=== PATIENT | female | born 1940 | race Caucasian/White ===

== ENCOUNTER 2023-08-06 10:03 | Emergency (ER) | payer MEDICARE, BC ==
[~2023-08-06] VITALS: Ht 149.8 cm; Wt 58.5 kg
== END 2023-08-06 12:39 | disposition home or self-care (01) ==
LOC: ED 10:03
DX: S69.91XA Unspecified injury of right wrist, hand and finger(s), initial encounter (principal); J44.9 Chronic obstructive pulmonary disease, unspecified; X50.1XXA Overexertion from prolonged static or awkward postures, initial encounter; Y93.89 Activity, other specified; Y92.89 Other specified places as the place of occurrence of the external cause; Y99.8 Other external cause status

== ENCOUNTER 2023-08-27 15:14 | Emergency (ER) | payer MEDICARE, BC ==
[~2023-08-27] VITALS: Ht 149.8 cm; Wt 56.2 kg
[2023-08-27 16:03] LABS: BASO # 0.1 10*3/uL (0.0-0.1); BASO % 0.5 % (0.0-1.0); EOS # 0.1 10*3/uL (0.0-0.4); EOS % 0.5 % (1.0-4.0); LYMPH # 1.1 10*3/uL (1.3-4.4); LYMPH % 8.5 % (27.0-41.0); MEAN CELL VOLUME 94.3 fl (81.0-99.0); MEAN CORPUSCULAR HGB 30.4 pg (27.0-31.0); MEAN CORPUSCULAR HGB CONC 32.2 g/dl (33.0-37.0); MEAN PLATELET VOLUME 9.6 fl (9.6-12.3); MONO # 0.8 10*3/uL (0.1-1.0); MONO % 6.6 % (3.0-9.0); NEUT # 10.7 10*3/uL (2.3-7.9); NEUT % 83.7 % (47.0-73.0); PLATELET COUNT AUTOMATED 220 10*3/uL (130-400); RED BLOOD COUNT 4.77 10*6/uL (4.10-5.10); WHITE BLOOD COUNT 12.8 10*3/uL (4.8-10.8)
[2023-08-27 16:25] LABS: ALKALINE PHOSPHATASE 90 U/L (46-116); BUN 16 mg/dl (9-23); CHLORIDE 103 mmol/L (98-107); TOTAL PROTEIN 6.2 gm/dL (6.0-8.0)
[2023-08-27 16:28] LABS: SGPT/ALT < 7 U/L (5-49)
[2023-08-27] MEDS ORDERED: LEVOFLOXACIN500 MG PO ×2 (18:27)
[2023-08-28] MEDS ORDERED: TRELEGY ELLIPT1 EACH INH (16:26)
[2023-08-28] MEDS ORDERED: METOPROLOL SUCC50 M1 PO (16:27)
[2023-08-28] MEDS ORDERED: ASPIRIN81 M1 PO (16:27)
[2023-08-28] MEDS ORDERED: PROVENTIL HFA6.7 GM INH (16:28)
[2023-08-28] MEDS ORDERED: DOCUSATE SOD100 MG PO (16:29)
[2023-08-28] MEDS ORDERED: LIPITOR20 MG PO (16:29)
[2023-08-28] MEDS ORDERED: LOSARTAN POTAS100 MG PO (16:30)
[2023-08-28] MEDS ORDERED: LEVOTHYROXINE88 MCG PO (16:30)
[2023-08-28] MEDS ORDERED: ANTIVERT25 M2 PO (16:31)
[2023-08-28] MEDS ORDERED: OMEPRAZOLE40 MG PO (16:31)
[2023-08-28] MEDS ORDERED: MIRALAX POWDER17 G1 PO (16:32)
[2023-08-28] MEDS ORDERED: ALBUTEROL S5 MG/1 ML INH (16:32)
[2023-08-28] MEDS ORDERED: TYLENOL325 M2 PO (16:33)
[2023-08-28] MEDS ORDERED: CONSTULOSE10 GM/151 PO (16:33)
[2023-08-28] MEDS ORDERED: SINGULAIR10 M1 PO (16:35)
[2023-08-28] MEDS ORDERED: OMEGA 3 1,0001 EACH PO (16:35)
[2023-08-28] MEDS ORDERED: POTASSIUM CHLO10 ME5 PO (16:36)
[2023-08-28] MEDS ORDERED: MAGNESIUM400 M1 PO (16:37)
[2023-08-28] MEDS ORDERED: AMLODIPINE BESYL5 MG PO (16:37)
[2023-08-28] MEDS ORDERED: LASIX40 MG PO (16:37)
== END 2023-08-27 19:21 | disposition home or self-care (01) ==
LOC: ED 15:14
PROVIDERS: Nurse Practitioner
DX: J18.9 Pneumonia, unspecified organism (principal); J44.9 Chronic obstructive pulmonary disease, unspecified; R60.0 Localized edema; Z87.891 Personal history of nicotine dependence

== ENCOUNTER 2023-08-28 14:46 | Inpatient (IN) | payer MEDICARE, BC ==
[~2023-08-28] VITALS: Ht 149.9 cm; Wt 56.8 kg
[~2023-08-28 14:46] MED LIST: LEVOFLOXACIN500 MG PO
[2023-08-28 15:42] VITALS: BP 165/97
[2023-08-28 15:42] LABS: BASO % 0.2 % (0.0-1.0); HEMATOCRIT 44.6 % (37.0-47.0); LYMPH # 0.8 10*3/uL (1.3-4.4); LYMPH % 4.6 % (27.0-41.0); MEAN CELL VOLUME 93.9 fl (81.0-99.0); MEAN CORPUSCULAR HGB 30.7 pg (27.0-31.0); MEAN CORPUSCULAR HGB CONC 32.7 g/dl (33.0-37.0); MEAN PLATELET VOLUME 10.3 fl (9.6-12.3); NEUT # 15.4 10*3/uL (2.3-7.9); NEUT % 88.6 % (47.0-73.0); PLATELET COUNT AUTOMATED 198 10*3/uL (130-400); RED BLOOD COUNT 4.75 10*6/uL (4.10-5.10); RED CELL DISTRI WIDTH 12.4 % (0-14.5); WHITE BLOOD COUNT 17.3 10*3/uL (4.8-10.8)
[2023-08-28 15:47] LABS: ALKALINE PHOSPHATASE 91 U/L (46-116); BUN 22 mg/dl (9-23); CHLORIDE 103 mmol/L (98-107); SGPT/ALT 8 U/L (5-49); TOTAL PROTEIN 6.7 gm/dL (6.0-8.0)
[2023-08-28] MEDS ORDERED: TRELEGY ELLIPT1 EACH INH (16:26)
[2023-08-28] MEDS ORDERED: METOPROLOL SUCC50 M1 PO (16:27)
[2023-08-28] MEDS ORDERED: ASPIRIN81 M1 PO (16:27)
[2023-08-28] MEDS ORDERED: PROVENTIL HFA6.7 GM INH (16:28)
[2023-08-28] MEDS ORDERED: LIPITOR20 MG PO (16:29)
[2023-08-28] MEDS ORDERED: DOCUSATE SOD100 MG PO (16:29)
[2023-08-28] MEDS ORDERED: LOSARTAN POTAS100 MG PO (16:30)
[2023-08-28] MEDS ORDERED: LEVOTHYROXINE88 MCG PO (16:30)
[2023-08-28] MEDS ORDERED: OMEPRAZOLE40 MG PO (16:31)
[2023-08-28] MEDS ORDERED: ANTIVERT25 M2 PO (16:31)
[2023-08-28] MEDS ORDERED: ALBUTEROL S5 MG/1 ML INH (16:32)
[2023-08-28] MEDS ORDERED: MIRALAX POWDER17 G1 PO (16:32)
[2023-08-28] MEDS ORDERED: CONSTULOSE10 GM/151 PO (16:33)
[2023-08-28] MEDS ORDERED: TYLENOL325 M2 PO (16:33)
[2023-08-28] MEDS ORDERED: SINGULAIR10 M1 PO (16:35)
[2023-08-28] MEDS ORDERED: OMEGA 3 1,0001 EACH PO (16:35)
[2023-08-28] MEDS ORDERED: POTASSIUM CHLO10 ME5 PO (16:36)
[2023-08-28] MEDS ORDERED: LASIX40 MG PO (16:37)
[2023-08-28] MEDS ORDERED: AMLODIPINE BESYL5 MG PO (16:37)
[2023-08-28] MEDS ORDERED: MAGNESIUM400 M1 PO (16:37)
[2023-08-28 19:50] VITALS: BP 154/72
[2023-08-28 21:50] VITALS: BP 148/80
[2023-08-28 22:00] VITALS: BP 148/80
[2023-08-29] VITALS: BP 140/78
[2023-08-29 06:09] LABS: HEMATOCRIT 36.4 % (37.0-47.0); MEAN CELL VOLUME 94.3 fl (81.0-99.0); MEAN CORPUSCULAR HGB 30.3 pg (27.0-31.0); MEAN CORPUSCULAR HGB CONC 32.1 g/dl (33.0-37.0); PLATELET COUNT AUTOMATED 160 10*3/uL (130-400); RED BLOOD COUNT 3.86 10*6/uL (4.10-5.10); RED CELL DISTRI WIDTH 12.3 % (0-14.5); WHITE BLOOD COUNT 11.3 10*3/uL (4.8-10.8)
[2023-08-29 06:29] LABS: MANUAL DIFF REFLEX YES
[2023-08-29 06:34] LABS: ALKALINE PHOSPHATASE 67 U/L (46-116); BUN 18 mg/dl (9-23); CHLORIDE 105 mmol/L (98-107); POTASSIUM 4.4 mmol/L (3.4-5.1); TOTAL PROTEIN 5.2 gm/dL (6.0-8.0)
[2023-08-29 06:37] LABS: SGPT/ALT < 7 U/L (5-49)
[2023-08-29 07:18] LABS: PLATELET SUFFICIENCY NORMAL (NORMAL); TOTAL CELLS COUNTED 100 #CELLS
[2023-08-29 08:00] VITALS: BP 131/65
[2023-08-29 12:00] VITALS: BP 129/75
[2023-08-29 16:00] VITALS: BP 144/77
[2023-08-29 20:00] VITALS: BP 123/63
[2023-08-30] VITALS: BP 128/76
[2023-08-30 06:07] LABS: HEMATOCRIT 39.7 % (37.0-47.0); MEAN CORPUSCULAR HGB 30.4 pg (27.0-31.0); MEAN PLATELET VOLUME 10.1 fl (9.6-12.3); PLATELET COUNT AUTOMATED 194 10*3/uL (130-400); RED BLOOD COUNT 4.18 10*6/uL (4.10-5.10); RED CELL DISTRI WIDTH 12.5 % (0-14.5); WHITE BLOOD COUNT 9.3 10*3/uL (4.8-10.8)
[2023-08-30 06:20] LABS: MANUAL DIFF REFLEX YES
[2023-08-30 06:39] LABS: BUN 20 mg/dl (9-23); CHLORIDE 104 mmol/L (98-107); POTASSIUM 4.2 mmol/L (3.4-5.1)
[2023-08-30 07:12] LABS: PLATELET SUFFICIENCY NORMAL (NORMAL); TOTAL CELLS COUNTED 100 #CELLS
[2023-08-30 08:00] VITALS: BP 139/80
[2023-08-30 12:18] VITALS: BP 140/78
[2023-08-30] MEDS ORDERED: ZITHROMAX250 MG PO (12:28)
[2023-08-30] MEDS ORDERED: PREDNISONE10 MG PO (12:28)
[2023-08-30] MEDS ORDERED: ALBUTEROL S5 MG/1 ML NEB (12:28)
[2023-08-30] MEDS ORDERED: NEBULIZER NEB (12:29)
[2023-08-31] MEDS ORDERED: VENTOLIN 02.5 MG/3 M INH (13:45)
== END 2023-08-30 16:00 | disposition home or self-care (01) | DRG 871 ==
LOC: ED 14:46 → EDHOLD 15:02 → 5E 15:02
PROVIDERS: Emergency Medicine; Family Medicine; Student in an Organized Health Care Education/Training Program; ADMIT Internal Medicine; ATTEND Internal Medicine
DX: A41.9 Sepsis, unspecified organism (principal); E43 Unspecified severe protein-calorie malnutrition; J15.69 Pneumonia due to other Gram-negative bacteria; J96.01 Acute respiratory failure with hypoxia; N17.0 Acute kidney failure with tubular necrosis; J44.0 Chronic obstructive pulmonary disease with (acute) lower respiratory infection; J44.1 Chronic obstructive pulmonary disease with (acute) exacerbation; E87.20 Acidosis, unspecified; R65.20 Severe sepsis without septic shock; I10 Essential (primary) hypertension; E03.9 Hypothyroidism, unspecified; Z87.891 Personal history of nicotine dependence; Z68.25 Body mass index [BMI] 25.0-25.9, adult

== ENCOUNTER 2023-09-02 13:22 | Emergency (ER) | payer MEDICARE, BC ==
[~2023-09-02] VITALS: Ht 149.8 cm; Wt 56.2 kg
[~2023-09-02 13:22] MED LIST changes: +ALBUTEROL S5 MG/1 ML INH; +ALBUTEROL S5 MG/1 ML NEB; +AMLODIPINE BESYL5 MG PO; +ANTIVERT25 M2 PO; +ASPIRIN81 M1 PO; +CONSTULOSE10 GM/151 PO; +DOCUSATE SOD100 MG PO; +LASIX40 MG PO; +LEVOTHYROXINE88 MCG PO; +LIPITOR20 MG PO; +LOSARTAN POTAS100 MG PO; +MAGNESIUM400 M1 PO; +METOPROLOL SUCC50 M1 PO; +MIRALAX POWDER17 G1 PO; +NEBULIZER NEB; +OMEGA 3 1,0001 EACH PO; +OMEPRAZOLE40 MG PO; +POTASSIUM CHLO10 ME5 PO; +PREDNISONE10 MG PO; +PROVENTIL HFA6.7 GM INH; +SINGULAIR10 M1 PO; +TRELEGY ELLIPT1 EACH INH; +TYLENOL325 M2 PO; +VENTOLIN 02.5 MG/3 M INH; +ZITHROMAX250 MG PO
[2023-09-02 15:01] LABS: HEMATOCRIT 42.5 % (37.0-47.0); MEAN CELL VOLUME 92.2 fl (81.0-99.0); MEAN CORPUSCULAR HGB 30.2 pg (27.0-31.0); MEAN CORPUSCULAR HGB CONC 32.7 g/dl (33.0-37.0); MEAN PLATELET VOLUME 9.5 fl (9.6-12.3); PLATELET COUNT AUTOMATED 233 10*3/uL (130-400); RED BLOOD COUNT 4.61 10*6/uL (4.10-5.10); WHITE BLOOD COUNT 9.5 10*3/uL (4.8-10.8)
[2023-09-02 15:07] LABS: MANUAL DIFF REFLEX YES
[2023-09-02 15:20] LABS: BUN 18 mg/dl (9-23); CHLORIDE 98 mmol/L (98-107); POTASSIUM 4.1 mmol/L (3.4-5.1)
[2023-09-02 15:26] LABS: PLATELET SUFFICIENCY NORMAL (NORMAL); TOTAL CELLS COUNTED 100 #CELLS
[2023-09-02 15:27] LABS: BURR CELLS FEW
[2023-09-02 15:56] LABS: BILIRUBIN Negative (Negative); BLOOD Negative (Negative); CLARITY Clear (Clear); COLOR Yellow (Yellow); GLUCOSE Negative (Negative); KETONE Negative (Negative); LEUKO ESTERASE Negative (Negative); NITRITE Negative (Negative)
[2023-09-02 16:16] LABS: EPITHELIAL CELLS 0-2; WAXY CAST 0-2
== END 2023-09-02 17:10 | disposition home or self-care (01) ==
LOC: ED 13:22
PROVIDERS: Internal Medicine
DX: R35.0 Frequency of micturition (principal); J44.9 Chronic obstructive pulmonary disease, unspecified; Z98.890 Other specified postprocedural states; Z87.891 Personal history of nicotine dependence

== ENCOUNTER 2023-09-23 07:32 | Emergency (ER) | payer MEDICARE, BC ==
[~2023-09-23] VITALS: Ht 121.9 cm; Wt 54.4 kg
[2023-09-23] MEDS ORDERED: Ondansetron Hydrochloride 4 MG/2 ML VIAL IV ONE (08:00)
[2023-09-23] MEDS ORDERED: SODIUM CHLORIDE 0.9% 1,000 ML IV ONE ×2 (08:00→09:15)
[2023-09-23] MEDS ORDERED: Albuterol Sulfate 2.5 MG/3 ML VIAL NEB ONE (08:05)
[2023-09-23] MEDS ORDERED: methylPREDNISolone sod succ 125 MG VIAL IV ONE (08:05)
[2023-09-23 08:49] LABS: BASO % 0.8 % (0.0-1.0); EOS # 0.1 10*3/uL (0.0-0.4); EOS % 2.5 % (1.0-4.0); HEMATOCRIT 44.7 % (37.0-47.0); LYMPH # 1.2 10*3/uL (1.3-4.4); LYMPH % 22.6 % (27.0-41.0); MEAN CELL VOLUME 95.1 fl (81.0-99.0); MEAN CORPUSCULAR HGB 29.8 pg (27.0-31.0); MEAN CORPUSCULAR HGB CONC 31.3 g/dl (33.0-37.0); MEAN PLATELET VOLUME 9.2 fl (9.6-12.3); MONO # 0.3 10*3/uL (0.1-1.0); MONO % 6.2 % (3.0-9.0); NEUT # 3.5 10*3/uL (2.3-7.9); NEUT % 67.3 % (47.0-73.0); PLATELET COUNT AUTOMATED 258 10*3/uL (130-400); RED CELL DISTRI WIDTH 12.7 % (0-14.5); WHITE BLOOD COUNT 5.2 10*3/uL (4.8-10.8)
[2023-09-23 09:05] LABS: ALKALINE PHOSPHATASE 98 U/L (46-116); BUN 13 mg/dl (9-23); CHLORIDE 103 mmol/L (98-107); POTASSIUM 3.3 mmol/L (3.4-5.1); TOTAL PROTEIN 6.1 gm/dL (6.0-8.0)
[2023-09-23 09:07] LABS: SGPT/ALT < 7 U/L (5-49)
[2023-09-23 10:30] LABS: BILIRUBIN Negative (Negative); BLOOD Negative (Negative); CLARITY Clear (Clear); COLOR Yellow (Yellow); GLUCOSE Negative (Negative); KETONE Negative (Negative); LEUKO ESTERASE Negative (Negative); NITRITE Negative (Negative); PH 6.5 (4.5-8.0); SPECIFIC GRAVITY <= 1.005 (1.001-1.030); UROBILINOGEN 0.2 E.U./dl (0.0-1.0)
[2023-09-23 10:51] LABS: BACTERIA TRACE; EPITHELIAL CELLS 0-2; HYALINE CAST 0-2; WBC 0-2 wbc/hpf (0-5)
[2023-09-23] MEDS ORDERED: POTASSIUM CHLORIDE 20 MEQ TAB PO ONE (11:00)
[2023-09-23] MEDS ORDERED: ONDANSETRON4 MG SL (11:58)
[2023-09-23] MEDS ORDERED: PREDNISONE20 M1 PO (11:58)
== END 2023-09-23 13:12 | disposition home or self-care (01) ==
LOC: ED 07:32
PROVIDERS: Emergency Medicine
DX: J44.1 Chronic obstructive pulmonary disease with (acute) exacerbation (principal); Z20.822 Contact with and (suspected) exposure to COVID-19; E86.0 Dehydration; R11.2 Nausea with vomiting, unspecified; R19.7 Diarrhea, unspecified; I10 Essential (primary) hypertension; E03.9 Hypothyroidism, unspecified; M19.90 Unspecified osteoarthritis, unspecified site; E78.5 Hyperlipidemia, unspecified; Z98.890 Other specified postprocedural states; Z87.891 Personal history of nicotine dependence

== ENCOUNTER 2023-09-25 09:10 | Emergency (ER) | payer MEDICARE, BC ==
[~2023-09-25] VITALS: Ht 149.8 cm; Wt 56.2 kg
[~2023-09-25 09:10] MED LIST changes: +ONDANSETRON4 MG SL; +PREDNISONE20 M1 PO
[2023-09-25] MEDS ORDERED: Albuterol Sulfate 2.5 MG/3 ML VIAL NEB ONE (09:45)
[2023-09-25] MEDS ORDERED: methylPREDNISolone sod succ 125 MG VIAL IV ONE (09:45)
[2023-09-25] MEDS ORDERED: MAGNESIUM SULFATE 50 ML IV ONE (09:45)
[2023-09-25 10:06] LABS: BASO % 0.5 % (0.0-1.0); EOS % 0.4 % (1.0-4.0); HEMATOCRIT 41.6 % (37.0-47.0); LYMPH % 26.5 % (27.0-41.0); MEAN CELL VOLUME 93.5 fl (81.0-99.0); MEAN CORPUSCULAR HGB 29.7 pg (27.0-31.0); MEAN CORPUSCULAR HGB CONC 31.7 g/dl (33.0-37.0); MEAN PLATELET VOLUME 8.9 fl (9.6-12.3); MONO # 0.7 10*3/uL (0.1-1.0); MONO % 9.8 % (3.0-9.0); NEUT # 4.7 10*3/uL (2.3-7.9); NEUT % 62.3 % (47.0-73.0); PLATELET COUNT AUTOMATED 274 10*3/uL (130-400); RED BLOOD COUNT 4.45 10*6/uL (4.10-5.10); WHITE BLOOD COUNT 7.5 10*3/uL (4.8-10.8)
[2023-09-25 10:29] LABS: ALKALINE PHOSPHATASE 72 U/L (46-116); BUN 19 mg/dl (9-23); CHLORIDE 103 mmol/L (98-107); POTASSIUM 3.8 mmol/L (3.4-5.1); SGPT/ALT 9 U/L (5-49)
[2023-09-25] MEDS ORDERED: LASIX20 MG PO (11:13)
[2023-09-25] MEDS ORDERED: AVPAK AZITHROM250 M1 PO (11:13)
[2023-09-30] MEDS ORDERED: LUBIPROSTONE24 MCG PO (22:28)
[2023-09-30] MEDS ORDERED: PANTOPRAZOLE SO40 MG PO (22:29)
[2023-10-03] MEDS ORDERED: PREDNISONE50 MG PO (14:27)
[2023-10-03] MEDS ORDERED: OMNICEF300 MG PO (14:27)
[2023-10-03] MEDS ORDERED: ZITHROMAX250 MG PO (14:27)
== END 2023-09-25 11:42 | disposition home or self-care (01) ==
LOC: ED 09:10
PROVIDERS: Emergency Medicine
DX: J44.1 Chronic obstructive pulmonary disease with (acute) exacerbation (principal); I10 Essential (primary) hypertension; E78.5 Hyperlipidemia, unspecified; M19.90 Unspecified osteoarthritis, unspecified site; Z98.890 Other specified postprocedural states; Z87.891 Personal history of nicotine dependence

== ENCOUNTER 2023-11-06 19:00 | Emergency (ER) | payer MEDICARE, BC ==
[~2023-11-06] VITALS: Ht 149.8 cm; Wt 55.3 kg
[~2023-11-06 19:00] MED LIST changes: +AVPAK AZITHROM250 M1 PO; +LASIX20 MG PO; +LUBIPROSTONE24 MCG PO; +OMNICEF300 MG PO; +PANTOPRAZOLE SO40 MG PO; +PREDNISONE50 MG PO
[2023-11-06 19:49] LABS: BASO # 0.1 10*3/uL (0.0-0.1); EOS # 0.1 10*3/uL (0.0-0.4); EOS % 1.4 % (1.0-4.0); HEMATOCRIT 39.5 % (37.0-47.0); LYMPH # 1.5 10*3/uL (1.3-4.4); MEAN CELL VOLUME 93.2 fl (81.0-99.0); MEAN CORPUSCULAR HGB 30.2 pg (27.0-31.0); MEAN CORPUSCULAR HGB CONC 32.4 g/dl (33.0-37.0); MEAN PLATELET VOLUME 8.8 fl (9.6-12.3); MONO # 0.7 10*3/uL (0.1-1.0); MONO % 13.2 % (3.0-9.0); NEUT # 2.7 10*3/uL (2.3-7.9); NEUT % 53.4 % (47.0-73.0); PLATELET COUNT AUTOMATED 248 10*3/uL (130-400); RED BLOOD COUNT 4.24 10*6/uL (4.10-5.10)
[2023-11-06 20:04] LABS: BUN 12 mg/dl (9-23); CHLORIDE 105 mmol/L (98-107); POTASSIUM 3.9 mmol/L (3.4-5.1)
[2023-11-06] MEDS ORDERED: cloNIDine Hydrochloride 0.1 MG TAB PO ONE (20:15)
== END 2023-11-06 20:29 | disposition home or self-care (01) ==
LOC: ED 19:00
PROVIDERS: Nurse Practitioner Family
DX: I10 Essential (primary) hypertension (principal); J44.9 Chronic obstructive pulmonary disease, unspecified; E78.5 Hyperlipidemia, unspecified; M19.90 Unspecified osteoarthritis, unspecified site; Z98.890 Other specified postprocedural states; Z87.891 Personal history of nicotine dependence

== ENCOUNTER 2024-01-13 21:38 | Emergency (ER) | payer MEDICARE, BC ==
[~2024-01-13] VITALS: Ht 170.1 cm; Wt 72.6 kg
[~2024-01-13 21:38] MED LIST changes: +ALBUTEROL HFA 90MCG INH; +AMLODIPINE BES2.5 MG PO; +BENZONATATE100 M1 PO; +CEFUROXIME AXE500 MG PO; +DOXYCYCLINE HY100 M3 PO; +HYDROCHLOROTH12.5 M3 PO; +PROTONIX40 MG PO; +TRELEGY ELLIPT1 EAC1 INH; +ZITHROMAX500 MG PO
[2024-01-13 22:21] LABS: BASO # 0.1 10*3/uL (0.0-0.1); EOS # 0.1 10*3/uL (0.0-0.4); EOS % 1.5 % (1.0-4.0); HEMATOCRIT 37.9 % (37.0-47.0); LYMPH # 1.6 10*3/uL (1.3-4.4); LYMPH % 26.8 % (27.0-41.0); MEAN CELL VOLUME 92.7 fl (81.0-99.0); MEAN CORPUSCULAR HGB 31.3 pg (27.0-31.0); MEAN CORPUSCULAR HGB CONC 33.8 g/dl (33.0-37.0); MEAN PLATELET VOLUME 9.3 fl (9.6-12.3); MONO # 0.6 10*3/uL (0.1-1.0); NEUT # 3.6 10*3/uL (2.3-7.9); NEUT % 60.4 % (47.0-73.0); PLATELET COUNT AUTOMATED 178 10*3/uL (130-400); RED BLOOD COUNT 4.09 10*6/uL (4.10-5.10); RED CELL DISTRI WIDTH 13.4 % (0-14.5); WHITE BLOOD COUNT 5.9 10*3/uL (4.8-10.8)
[2024-01-13 22:44] LABS: ALKALINE PHOSPHATASE 75 U/L (46-116); BUN 11 mg/dl (9-23); CHLORIDE 101 mmol/L (98-107); POTASSIUM 3.3 mmol/L (3.4-5.1); SGPT/ALT 12 U/L (5-49)
[2024-01-13] MEDS ORDERED: methylPREDNISolone sod succ 125 MG VIAL IV ONE (23:00)
[2024-01-13] MEDS ORDERED: Albuterol Sulf/Ipratropium 3 ML VIAL NEB ONE (23:00)
[2024-01-14] MEDS ORDERED: Albuterol Sulf/Ipratropium 3 ML VIAL NEB ONE (00:30)
[2024-01-14] MEDS ORDERED: AMOX-CLAV 875-1 EACH PO (00:40)
[2024-01-14] MEDS ORDERED: MUCUS ER1200 MG PO (00:40)
[2024-01-14] MEDS ORDERED: PREDNISONE20 M1 PO (00:40)
[2024-01-14] MEDS ORDERED: FUROSEMIDE 40 MG/4 ML VIAL IV ONE (00:55)
[2024-01-14] MEDS ORDERED: POTASSIUM CHLORIDE 20 MEQ TAB PO ONE (00:55)
== END 2024-01-14 01:10 | disposition home or self-care (01) ==
LOC: ED 21:38
PROVIDERS: Internal Medicine
DX: J44.1 Chronic obstructive pulmonary disease with (acute) exacerbation (principal); J44.9 Chronic obstructive pulmonary disease, unspecified; I10 Essential (primary) hypertension; E78.5 Hyperlipidemia, unspecified; M19.90 Unspecified osteoarthritis, unspecified site; Z98.890 Other specified postprocedural states; Z87.891 Personal history of nicotine dependence

== ENCOUNTER 2024-02-18 15:21 | Emergency (ER) | payer MEDICARE, BC ==
[~2024-02-18] VITALS: Ht 241.3 cm; Wt 55.3 kg
[~2024-02-18 15:21] MED LIST changes: +AMOX-CLAV 875-1 EACH PO; +MUCUS ER1200 MG PO
[2024-02-18 17:03] LABS: BASO % 0.8 % (0.0-1.0); EOS # 0.1 10*3/uL (0.0-0.4); EOS % 1.4 % (1.0-4.0); HEMATOCRIT 40.3 % (37.0-47.0); LYMPH # 1.5 10*3/uL (1.3-4.4); LYMPH % 30.2 % (27.0-41.0); MEAN CELL VOLUME 95.3 fl (81.0-99.0); MEAN CORPUSCULAR HGB CONC 32.5 g/dl (33.0-37.0); MEAN PLATELET VOLUME 9.1 fl (9.6-12.3); MONO # 0.5 10*3/uL (0.1-1.0); MONO % 9.9 % (3.0-9.0); NEUT # 2.8 10*3/uL (2.3-7.9); NEUT % 57.3 % (47.0-73.0); PLATELET COUNT AUTOMATED 217 10*3/uL (130-400); RED BLOOD COUNT 4.23 10*6/uL (4.10-5.10); RED CELL DISTRI WIDTH 13.8 % (0-14.5); WHITE BLOOD COUNT 4.9 10*3/uL (4.8-10.8)
[2024-02-18 17:19] LABS: POTASSIUM 4.5 mmol/L (3.4-5.1)
[2024-02-18] MEDS ORDERED: AVPAK AZITHROM250 M1 PO ×2 (18:41→19:59)
[2024-02-18] MEDS ORDERED: PREDNISONE20 M1 PO (18:41)
[2024-02-18] MEDS ORDERED: AZITHROMYCIN 250 MG TAB PO ONE (18:45)
[2024-02-18] MEDS ORDERED: methylPREDNISolone sod succ 125 MG VIAL IM ONE (18:45)
== END 2024-02-18 19:06 | disposition home or self-care (01) ==
LOC: ED 15:21
PROVIDERS: Nurse Practitioner Family
DX: J44.1 Chronic obstructive pulmonary disease with (acute) exacerbation (principal); R73.9 Hyperglycemia, unspecified; E87.1 Hypo-osmolality and hyponatremia; E03.9 Hypothyroidism, unspecified; M19.90 Unspecified osteoarthritis, unspecified site; I10 Essential (primary) hypertension; E78.5 Hyperlipidemia, unspecified; Z98.890 Other specified postprocedural states; Z87.891 Personal history of nicotine dependence

== ENCOUNTER 2024-06-17 09:30 | Emergency (ER) | payer MEDICARE, BC ==
[~2024-06-17] VITALS: Wt 54.4 kg
[~2024-06-17 09:30] MED LIST changes: +COZAAR50 M1 PO; +FEXOFENADINE H180 M1 PO; +LEVOTHYROXINE100 MC1 PO; +MUCINEX1200 M1 PO; +NORVASC10 MG PO; +SEPTDS PO; +VIBRA-TAB100 MG PO
[2024-06-17] MEDS ORDERED: MAGNESIUM SULFATE 50 ML IV ONE (09:40)
[2024-06-17] MEDS ORDERED: methylPREDNISolone sod succ 125 MG VIAL IV ONE (09:40)
[2024-06-17] MEDS ORDERED: Albuterol Sulfate 2.5 MG/3 ML VIAL NEB ONE (09:40)
[2024-06-17] MEDS ORDERED: SODIUM CHLORIDE 0.9% 500 ML IV ONE (09:45)
[2024-06-17 10:13] LABS: BASO # 0.1 10*3/uL (0.0-0.1); BASO % 1.1 % (0.0-1.0); EOS # 0.1 10*3/uL (0.0-0.4); EOS % 1.2 % (1.0-4.0); HEMATOCRIT 38.5 % (37.0-47.0); MEAN CELL VOLUME 90.6 fl (81.0-99.0); MEAN CORPUSCULAR HGB 29.4 pg (27.0-31.0); MEAN CORPUSCULAR HGB CONC 32.5 g/dl (33.0-37.0); MEAN PLATELET VOLUME 8.6 fl (9.6-12.3); MONO # 0.9 10*3/uL (0.1-1.0); MONO % 8.2 % (3.0-9.0); NEUT # 6.7 10*3/uL (2.3-7.9); NEUT % 60.8 % (47.0-73.0); PLATELET COUNT AUTOMATED 391 10*3/uL (130-400); RED BLOOD COUNT 4.25 10*6/uL (4.10-5.10); RED CELL DISTRI WIDTH 13.2 % (0-14.5); WHITE BLOOD COUNT 11.1 10*3/uL (4.8-10.8)
[2024-06-17 10:36] LABS: POTASSIUM 3.7 mmol/L (3.4-5.1)
== END 2024-06-17 11:04 | disposition home or self-care (01) ==
LOC: ED 09:30
PROVIDERS: Emergency Medicine
DX: J44.1 Chronic obstructive pulmonary disease with (acute) exacerbation (principal); R60.0 Localized edema; I10 Essential (primary) hypertension; M19.90 Unspecified osteoarthritis, unspecified site; Z98.890 Other specified postprocedural states; Z87.891 Personal history of nicotine dependence; Z79.899 Other long term (current) drug therapy; Z79.82 Long term (current) use of aspirin

== ENCOUNTER 2024-07-13 14:43 | Emergency (ER) | payer MEDICARE, BC ==
[~2024-07-13] VITALS: Ht 149.8 cm; Wt 53.1 kg
[2024-07-13] MEDS ORDERED: methylPREDNISolone sod succ 125 MG VIAL IV ONE (15:00)
[2024-07-13 15:18] LABS: BASO # 0.1 10*3/uL (0.0-0.1); BASO % 0.6 % (0.0-1.0); EOS # 0.1 10*3/uL (0.0-0.4); EOS % 1.2 % (1.0-4.0); HEMATOCRIT 41.6 % (37.0-47.0); MEAN CELL VOLUME 89.5 fl (81.0-99.0); MEAN CORPUSCULAR HGB CONC 32.5 g/dl (33.0-37.0); MONO # 0.9 10*3/uL (0.1-1.0); MONO % 8.3 % (3.0-9.0); NEUT % 67.6 % (47.0-73.0); PLATELET COUNT AUTOMATED 303 10*3/uL (130-400); RED BLOOD COUNT 4.65 10*6/uL (4.10-5.10); RED CELL DISTRI WIDTH 14.1 % (0-14.5); WHITE BLOOD COUNT 10.3 10*3/uL (4.8-10.8)
[2024-07-13 15:33] LABS: BUN 13 mg/dl (9-23); CHLORIDE 99 mmol/L (98-107); POTASSIUM 3.8 mmol/L (3.4-5.1)
[2024-07-13] MEDS ORDERED: Synthroid,Levo88 MCG PO (15:38)
[2024-07-13] MEDS ORDERED: Ipratropium Brom3 ML INH (15:38)
[2024-07-13] MEDS ORDERED: AMLODIPINE BESY10 MG PO (15:39)
[2024-07-13] MEDS ORDERED: BENZONATATE100 M1 PO (15:39)
[2024-07-13] MEDS ORDERED: PREDNISONE50 MG PO (16:12)
[2024-07-13] MEDS ORDERED: AVPAK AZITHROM250 M1 PO (16:12)
== END 2024-07-13 16:49 | disposition home or self-care (01) ==
LOC: ED 14:43
PROVIDERS: Physician Assistant Medical
DX: J44.1 Chronic obstructive pulmonary disease with (acute) exacerbation (principal); I10 Essential (primary) hypertension; M19.90 Unspecified osteoarthritis, unspecified site; Z98.890 Other specified postprocedural states; Z87.891 Personal history of nicotine dependence

== ENCOUNTER → 2024-07-19 | Outpatient (CLI) | payer MEDICARE, BC ==
[~2024-07-19] MED LIST changes: +AMLODIPINE BESY10 MG PO; +Ipratropium Brom3 ML INH; +Synthroid,Levo88 MCG PO
[2024-07-19 09:27] LABS: MEAN CELL VOLUME 90.1 fl (81.0-99.0); MEAN CORPUSCULAR HGB 29.7 pg (27.0-31.0); MEAN PLATELET VOLUME 9.6 fl (9.6-12.3); RED BLOOD COUNT 4.44 10*6/uL (4.10-5.10); RED CELL DISTRI WIDTH 14.6 % (0-14.5)
== END | disposition home or self-care (01) ==
LOC: LAB 08:35
PROVIDERS: ATTEND Nurse Practitioner Family
DX: K92.0 Hematemesis (principal); K59.00 Constipation, unspecified

== ENCOUNTER 2024-08-01 13:29 | Emergency (ER) | payer MEDICARE, BC ==
[~2024-08-01] VITALS: Ht 149.8 cm; Wt 54.0 kg
[2024-08-01] MEDS ORDERED: Albuterol Sulf/Ipratropium 3 ML VIAL NEB ONE (14:00)
[2024-08-01] MEDS ORDERED: methylPREDNISolone sod succ 125 MG VIAL IV ONE (14:00)
[2024-08-01] MEDS ORDERED: MAGNESIUM SULFATE 50 ML IV ONE (14:00)
[2024-08-01] MEDS ORDERED: AZITHROMYCIN 250 MG TAB PO ONE (14:00)
[2024-08-01 14:18] LABS: BASO % 0.6 % (0.0-1.0); EOS % 0.6 % (1.0-4.0); HEMATOCRIT 39.3 % (37.0-47.0); MEAN CELL VOLUME 90.1 fl (81.0-99.0); MEAN CORPUSCULAR HGB 29.4 pg (27.0-31.0); MEAN CORPUSCULAR HGB CONC 32.6 g/dl (33.0-37.0); MEAN PLATELET VOLUME 9.7 fl (9.6-12.3); MONO # 0.6 10*3/uL (0.1-1.0); MONO % 8.1 % (3.0-9.0); NEUT # 5.6 10*3/uL (2.3-7.9); NEUT % 77.1 % (47.0-73.0); PLATELET COUNT AUTOMATED 191 10*3/uL (130-400); RED BLOOD COUNT 4.36 10*6/uL (4.10-5.10); RED CELL DISTRI WIDTH 14.6 % (0-14.5); WHITE BLOOD COUNT 7.2 10*3/uL (4.8-10.8)
[2024-08-01 14:32] LABS: BUN 15 mg/dl (9-23); CHLORIDE 101 mmol/L (98-107); POTASSIUM 3.9 mmol/L (3.4-5.1)
== END 2024-08-01 14:58 | disposition home or self-care (01) ==
LOC: ED 13:29
PROVIDERS: Emergency Medicine
DX: J44.1 Chronic obstructive pulmonary disease with (acute) exacerbation (principal); Z79.899 Other long term (current) drug therapy; Z79.82 Long term (current) use of aspirin; Z98.890 Other specified postprocedural states; Z96.612 Presence of left artificial shoulder joint; Z87.891 Personal history of nicotine dependence

== ENCOUNTER 2024-09-07 18:04 | Emergency (ER) | payer MEDICARE, BC ==
[~2024-09-07] VITALS: Ht 149.9 cm; Wt 54.4 kg
[2024-09-07 19:36] LABS: BASO # 0.1 10*3/uL (0.0-0.1); BASO % 0.5 % (0.0-1.0); EOS % 0.2 % (1.0-4.0); HEMATOCRIT 41.2 % (37.0-47.0); MEAN CELL VOLUME 91.8 fl (81.0-99.0); MEAN CORPUSCULAR HGB 29.4 pg (27.0-31.0); MEAN PLATELET VOLUME 9.6 fl (9.6-12.3); MONO # 0.7 10*3/uL (0.1-1.0); MONO % 6.8 % (3.0-9.0); NEUT # 8.7 10*3/uL (2.3-7.9); NEUT % 83.1 % (47.0-73.0); PLATELET COUNT AUTOMATED 237 10*3/uL (130-400); RED BLOOD COUNT 4.49 10*6/uL (4.10-5.10); RED CELL DISTRI WIDTH 14.6 % (0-14.5); WHITE BLOOD COUNT 10.5 10*3/uL (4.8-10.8)
[2024-09-07 19:57] LABS: ALKALINE PHOSPHATASE 73 U/L (46-116); BUN 19 mg/dl (9-23); CHLORIDE 102 mmol/L (98-107); POTASSIUM 4.1 mmol/L (3.4-5.1); SGPT/ALT 9 U/L (5-49); TOTAL PROTEIN 6.4 gm/dL (6.0-8.0)
[2024-09-07] MEDS ORDERED: SODIUM CHLORIDE 0.9% 1,000 ML IV ONE (20:05)
[2024-09-07] MEDS ORDERED: Ondansetron 4 MG 2 TAB ED PACK PO SCH (21:00)
[2024-09-07] MEDS ORDERED: Ondansetron4 MG PO (21:01)
[2024-09-07] MEDS ORDERED: Ondansetron Hydrochloride 4 MG/2 ML VIAL IV ONE (21:05)
== END 2024-09-07 21:50 | disposition home or self-care (01) ==
LOC: ED 18:04
PROVIDERS: Nurse Practitioner Family
DX: A08.4 Viral intestinal infection, unspecified (principal); R11.2 Nausea with vomiting, unspecified; Z79.899 Other long term (current) drug therapy; Z20.822 Contact with and (suspected) exposure to COVID-19

== ENCOUNTER → 2024-11-29 | Outpatient (CLI) | payer MEDICARE, BC ==
[~2024-11-29] MED LIST changes: +FUROSEMIDE20 M1 PO; +IOHEXOL 300 MG/ML 100 ML VIAL IV ONE; +LOSARTAN POTAS100 M1 PO; +Ondansetron4 MG PO
== END | disposition home or self-care (01) ==
LOC: CT 02:07
PROVIDERS: ATTEND Physician Assistant
DX: R91.8 Other nonspecific abnormal finding of lung field (principal); J43.9 Emphysema, unspecified; M19.072 Primary osteoarthritis, left ankle and foot; M77.32 Calcaneal spur, left foot; J18.9 Pneumonia, unspecified organism; R93.89 Abnormal findings on diagnostic imaging of other specified body structures; I25.10 Atherosclerotic heart disease of native coronary artery without angina pectoris; K44.9 Diaphragmatic hernia without obstruction or gangrene; M79.89 Other specified soft tissue disorders

== ENCOUNTER 2025-01-09 16:44 | Emergency (ER) | payer MEDICARE, BC ==
[~2025-01-09] VITALS: Ht 147.3 cm; Wt 56.7 kg
[~2025-01-09 16:44] MED LIST changes: -IOHEXOL 300 MG/ML 100 ML VIAL IV ONE
== END 2025-01-09 17:51 | disposition home or self-care (01) ==
LOC: ED 16:44
DX: S81.812A Laceration without foreign body, left lower leg, initial encounter (principal); I10 Essential (primary) hypertension; J44.9 Chronic obstructive pulmonary disease, unspecified; Z79.82 Long term (current) use of aspirin; Z79.899 Other long term (current) drug therapy; Z98.890 Other specified postprocedural states; W26.8XXA Contact with other sharp object(s), not elsewhere classified, initial encounter; Y93.89 Activity, other specified; Y92.89 Other specified places as the place of occurrence of the external cause; Y99.8 Other external cause status

== ENCOUNTER → 2025-01-10 | Outpatient (CLI) | payer MEDICARE, BC | END | disposition home or self-care (01) | LOC: RAD 03:56 | PROVIDERS: ATTEND Physician Assistant | DX: M48.07 Spinal stenosis, lumbosacral region (principal); M43.8X7 Other specified deforming dorsopathies, lumbosacral region; M43.17 Spondylolisthesis, lumbosacral region; M85.88 Other specified disorders of bone density and structure, other site; M54.9 Dorsalgia, unspecified; J18.9 Pneumonia, unspecified organism ==

== ENCOUNTER → 2025-01-15 | Outpatient (CLI) | payer MEDICARE, BC | END | disposition home or self-care (01) | LOC: WOUNDCARE 02:09 | PROVIDERS: ATTEND Nurse Practitioner Family | DX: S81.812A Laceration without foreign body, left lower leg, initial encounter (principal); R60.9 Edema, unspecified; J44.9 Chronic obstructive pulmonary disease, unspecified; E78.5 Hyperlipidemia, unspecified; E03.9 Hypothyroidism, unspecified; M19.90 Unspecified osteoarthritis, unspecified site; Z87.891 Personal history of nicotine dependence; Z98.890 Other specified postprocedural states; Z79.899 Other long term (current) drug therapy; X58.XXXA Exposure to other specified factors, initial encounter; Y93.89 Activity, other specified; Y92.89 Other specified places as the place of occurrence of the external cause; Y99.8 Other external cause status ==

== ENCOUNTER → 2025-01-22 | Outpatient (CLI) | payer MEDICARE, BC | END | disposition home or self-care (01) | LOC: WOUNDCARE 02:14 | PROVIDERS: ATTEND Nurse Practitioner Family | DX: S81.812D Laceration without foreign body, left lower leg, subsequent encounter (principal); R60.9 Edema, unspecified; J44.9 Chronic obstructive pulmonary disease, unspecified; E78.5 Hyperlipidemia, unspecified; E03.9 Hypothyroidism, unspecified; M19.90 Unspecified osteoarthritis, unspecified site; I10 Essential (primary) hypertension; Z87.891 Personal history of nicotine dependence; Z98.890 Other specified postprocedural states; Z79.82 Long term (current) use of aspirin; Z79.899 Other long term (current) drug therapy; X58.XXXD Exposure to other specified factors, subsequent encounter ==

== ENCOUNTER 2025-01-23 10:09 | Emergency (ER) | payer MEDICARE, BC ==
[~2025-01-23] VITALS: Ht 149.8 cm; Wt 56.7 kg
[2025-01-23] MEDS ORDERED: methylPREDNISolone sod succ 125 MG VIAL IV ONE (10:15)
[2025-01-23] MEDS ORDERED: AZITHROMYCIN 250 MG TAB PO ONE (10:15)
[2025-01-23] MEDS ORDERED: Albuterol Sulfate 2.5 MG/3 ML VIAL NEB ONE (10:15)
[2025-01-23] MEDS ORDERED: MAGNESIUM SULFATE 50 ML IV ONE (10:15)
[2025-01-23 10:49] LABS: BASO # 0.1 10*3/uL (0.0-0.1); BASO % 0.4 % (0.0-1.0); EOS # 0.1 10*3/uL (0.0-0.4); EOS % 0.8 % (1.0-4.0); HEMATOCRIT 40.8 % (37.0-47.0); MEAN CELL VOLUME 94.9 fl (81.0-99.0); MEAN CORPUSCULAR HGB 30.5 pg (27.0-31.0); MEAN CORPUSCULAR HGB CONC 32.1 g/dl (33.0-37.0); MEAN PLATELET VOLUME 9.9 fl (9.6-12.3); MONO # 1.1 10*3/uL (0.1-1.0); MONO % 8.6 % (3.0-9.0); NEUT # 9.9 10*3/uL (2.3-7.9); NEUT % 76.1 % (47.0-73.0); PLATELET COUNT AUTOMATED 230 10*3/uL (130-400); RED CELL DISTRI WIDTH 16.6 % (0-14.5)
[2025-01-23 11:48] LABS: BUN 25 mg/dl (9-23); CHLORIDE 101 mmol/L (98-107); POTASSIUM 3.6 mmol/L (3.4-5.1)
== END 2025-01-23 12:10 | disposition home or self-care (01) ==
LOC: ED 10:09
PROVIDERS: Emergency Medicine
DX: J44.1 Chronic obstructive pulmonary disease with (acute) exacerbation (principal); I10 Essential (primary) hypertension; Z79.899 Other long term (current) drug therapy; Z79.82 Long term (current) use of aspirin; Z98.890 Other specified postprocedural states; Z96.612 Presence of left artificial shoulder joint; Z87.891 Personal history of nicotine dependence

== ENCOUNTER → 2025-02-04 | Outpatient (CLI) | payer MEDICARE, BC | END | disposition home or self-care (01) | LOC: WOUNDCARE 01:34 | PROVIDERS: ATTEND Nurse Practitioner Family | DX: S81.812D Laceration without foreign body, left lower leg, subsequent encounter (principal); I10 Essential (primary) hypertension; J44.9 Chronic obstructive pulmonary disease, unspecified; E78.5 Hyperlipidemia, unspecified; E03.9 Hypothyroidism, unspecified; M19.90 Unspecified osteoarthritis, unspecified site; Z96.612 Presence of left artificial shoulder joint; Z98.890 Other specified postprocedural states; Z87.891 Personal history of nicotine dependence; Z79.82 Long term (current) use of aspirin; Z79.899 Other long term (current) drug therapy; X58.XXXD Exposure to other specified factors, subsequent encounter ==

== ENCOUNTER 2025-03-19 16:05 | Emergency (ER) | payer MEDICARE, BC ==
[~2025-03-19 16:05] MED LIST changes: +METOCLOPRAMIDE H5 M1 PO
[2025-03-19] MEDS ORDERED: Ondansetron Hydrochloride 4 MG/2 ML VIAL IV ONE (16:45)
[2025-03-19 16:54] LABS: MEAN CELL VOLUME 90.7 fl (81.0-99.0); MEAN CORPUSCULAR HGB 31.1 pg (27.0-31.0); MEAN PLATELET VOLUME 8.4 fl (9.6-12.3); NUCLEATED RED BLOOD CELL 0.0 % (0.0-0.0); NUCLEATED RED BLOOD CELL 0.0 10*3/uL (0.0-0.0); PLATELET COUNT AUTOMATED 308 10*3/uL (130-400); RED CELL DISTRI WIDTH 13.0 % (0-14.5)
[2025-03-19 16:57] LABS: MANUAL DIFF REFLEX YES
[2025-03-19 17:23] LABS: BUN 11 mg/dl (9-23); SGPT/ALT 10 U/L (5-49)
[2025-03-19 18:02] LABS: PLATELET SUFFICIENCY NORMAL (NORMAL)
[2025-03-19] MEDS ORDERED: CARAFATE1 G1 PO (18:47)
[2025-03-19] MEDS ORDERED: REGLAN10 M1 PO (18:47)
[2025-03-19] MEDS ORDERED: Ondansetron4 MG PO (18:47)
[2025-03-19] MEDS ORDERED: PROTONIX40 MG PO (18:47)
== END 2025-03-19 18:55 | disposition home or self-care (01) ==
LOC: ED 16:05
PROVIDERS: Emergency Medicine
DX: K21.9 Gastro-esophageal reflux disease without esophagitis (principal); E87.1 Hypo-osmolality and hyponatremia; J44.9 Chronic obstructive pulmonary disease, unspecified; Z79.82 Long term (current) use of aspirin; Z79.899 Other long term (current) drug therapy; Z98.890 Other specified postprocedural states; Z96.612 Presence of left artificial shoulder joint

== ENCOUNTER → 2025-06-11 | Outpatient (CLI) | payer MEDICARE, BC ==
[~2025-06-11] MED LIST changes: +ALLEGRA ALLERG180 M2 PO; +CARAFATE1 G1 PO; +DOXYCYCLINE MO100 MG PO; +DULCOLAX STOOL100 M1 PO; +LEVOFLOXACIN750 M2 PO; +MUCUS RELIEF E600 MG PO; +REGLAN10 M1 PO; +REGLAN5 MG PO; +TOPROL XL50 M1 PO
== END | disposition home or self-care (01) ==
LOC: WOUNDCARE 12:31
PROVIDERS: ATTEND Nurse Practitioner Family
DX: S51.811A Laceration without foreign body of right forearm, initial encounter (principal); J44.9 Chronic obstructive pulmonary disease, unspecified; E43 Unspecified severe protein-calorie malnutrition; E03.9 Hypothyroidism, unspecified; M19.90 Unspecified osteoarthritis, unspecified site; I10 Essential (primary) hypertension; Z96.612 Presence of left artificial shoulder joint; Z87.891 Personal history of nicotine dependence; W19.XXXA Unspecified fall, initial encounter; Y93.89 Activity, other specified; Y92.89 Other specified places as the place of occurrence of the external cause; Y99.8 Other external cause status

== ENCOUNTER 2025-06-26 09:33 | Emergency (ER) | payer MEDICARE, BC ==
[~2025-06-26] VITALS: Wt 55.8 kg
[2025-06-26] MEDS ORDERED: SODIUM CHLORIDE 0.9% 500 ML IV ONE (09:50)
[2025-06-26 10:06] LABS: BASO # 0.0 10*3/uL (0.0-0.1); BASO % 0.1 % (0.0-1.0); EOS # 0.1 10*3/uL (0.0-0.4); EOS % 0.7 % (1.0-4.0); MEAN CELL VOLUME 92.6 fl (81.0-99.0); MEAN CORPUSCULAR HGB 30.9 pg (27.0-31.0); MEAN PLATELET VOLUME 8.5 fl (9.6-12.3); MONO # 0.8 10*3/uL (0.1-1.0); MONO % 9.0 % (3.0-9.0); NEUT # 6.2 10*3/uL (2.3-7.9); NEUT % 74.9 % (47.0-73.0); NUCLEATED RED BLOOD CELL 0.0 % (0.0-0.0); NUCLEATED RED BLOOD CELL 0.0 10*3/uL (0.0-0.0); PLATELET COUNT AUTOMATED 265 10*3/uL (130-400); RED CELL DISTRI WIDTH 13.3 % (0-14.5)
[2025-06-26 10:29] LABS: BUN 21 mg/dl (9-23); CPK 16 U/L (34-171)
[2025-06-26 11:39] LABS: BILIRUBIN Negative (Negative); BLOOD Negative (Negative); CLARITY Clear (Clear); COLOR Yellow (Yellow); KETONE Negative (Negative); LEUKO ESTERASE Negative (Negative); NITRITE Negative (Negative); PH 7.5 (4.5-8.0); SPECIFIC GRAVITY 1.010 (1.001-1.030); UROBILINOGEN 0.2 E.U./dl (0.0-1.0)
[2025-06-26 11:57] LABS: EPITHELIAL CELLS 0-2; RBC 0-2 rbc/hpf (0-2)
== END 2025-06-26 12:42 | disposition home or self-care (01) ==
LOC: ED 09:33
PROVIDERS: Emergency Medicine
DX: R55 Syncope and collapse (principal); R42 Dizziness and giddiness; I10 Essential (primary) hypertension; M19.90 Unspecified osteoarthritis, unspecified site; Z87.891 Personal history of nicotine dependence; Z98.890 Other specified postprocedural states

== ENCOUNTER 2025-07-19 14:15 | Emergency (ER) | payer MEDICARE, BC ==
[2025-07-19 16:48] LABS: BASO # 0.0 10*3/uL (0.0-0.1); BASO % 0.6 % (0.0-1.0); EOS # 0.1 10*3/uL (0.0-0.4); EOS % 0.9 % (1.0-4.0); MEAN CELL VOLUME 93.6 fl (81.0-99.0); MEAN CORPUSCULAR HGB 30.4 pg (27.0-31.0); MEAN PLATELET VOLUME 9.5 fl (9.6-12.3); MONO # 0.7 10*3/uL (0.1-1.0); MONO % 11.0 % (3.0-9.0); NEUT # 4.4 10*3/uL (2.3-7.9); NEUT % 65.9 % (47.0-73.0); NUCLEATED RED BLOOD CELL 0.0 % (0.0-0.0); NUCLEATED RED BLOOD CELL 0.0 10*3/uL (0.0-0.0); PLATELET COUNT AUTOMATED 221 10*3/uL (130-400); RED CELL DISTRI WIDTH 13.8 % (0-14.5)
[2025-07-19 17:07] LABS: BUN 19 mg/dl (9-23); SGPT/ALT 9 U/L (5-49)
[2025-07-19] MEDS ORDERED: CEFDINIR 300 MG CAP PO ONE (18:00)
[2025-07-19] MEDS ORDERED: OMNICEF300 MG PO (18:10)
[2025-07-19] MEDS ORDERED: VIBRAMYCIN100 MG PO (18:10)
== END 2025-07-19 18:35 | disposition home or self-care (01) ==
LOC: ED 14:15
PROVIDERS: Student in an Organized Health Care Education/Training Program
DX: R63.4 Abnormal weight loss (principal); J18.9 Pneumonia, unspecified organism; I10 Essential (primary) hypertension; M19.90 Unspecified osteoarthritis, unspecified site; J44.9 Chronic obstructive pulmonary disease, unspecified; Z87.891 Personal history of nicotine dependence; Z98.890 Other specified postprocedural states

== ENCOUNTER → 2025-07-30 | Outpatient (CLI) | payer MEDICARE, BC ==
[~2025-07-30] MED LIST changes: +IOHEXOL 300 MG/ML 100 ML VIAL IV ONE; +IOHEXOL 300 MG/ML 100 ML VIAL ONE; +VIBRAMYCIN100 MG PO
== END | disposition home or self-care (01) ==
LOC: CT 01:33
PROVIDERS: ATTEND Physician Assistant
DX: J43.9 Emphysema, unspecified (principal); J98.11 Atelectasis; J98.4 Other disorders of lung; R91.1 Solitary pulmonary nodule; I25.10 Atherosclerotic heart disease of native coronary artery without angina pectoris; I70.0 Atherosclerosis of aorta; S22.080A Wedge compression fracture of T11-T12 vertebra, initial encounter for closed fracture; Z96.612 Presence of left artificial shoulder joint; X58.XXXA Exposure to other specified factors, initial encounter; Y93.89 Activity, other specified; Y92.89 Other specified places as the place of occurrence of the external cause; Y99.8 Other external cause status